=== PATIENT | female | born 1960 | race Caucasian/White ===

== ENCOUNTER 2019-01-19 07:55 | Day surgery (SDC) | payer OTHER ==
[~2019-01-19] VITALS: Ht 162.6 cm; Wt 131.1 kg
[~2019-01-19 07:55] MED LIST: ADVIL200 M1 PO; APPLE CIDER VI300 MG PO; AVAPRO300 MG PO; CALCIUM500 MG PO; CYCLOBENZAPRINE10 MG PO; GABAPENTIN300 MG PO; METFORMIN HCL500 MG PO; NAPROXEN500 MG PO; NORCO 7.5-3251 EACH PO; VENTOLIN HFA18 GM INH; VIT D2
--- NOTE | 2019-01-19 09:56 | NUR ---
01/19/19 0956 Erica Johnson 6962-PATIENT ARRIVED TO PACU ON 10L MASK NONAROUSABLE ORAL AIRWAY IN PLACE, PLACED ON 6L MASK. LAYING LEFT LATERAL. ABDOMEN ROUND AND SOFT. GLUCOSE CHECKED 148. SR
--- NOTE | 2019-01-20 07:38 | OR ---
[facility] [address], [place] [address] Signed DATE OF OPERATION: 01/19/2019 SURGEON: Alisha Barber MD PREOPERATIVE DIAGNOSIS: Screening. POSTOPERATIVE DIAGNOSIS: Several small internal anal skin tags. PROCEDURE: Colonoscopy without biopsy. ESTIMATED BLOOD LOSS: None. INDICATIONS: Mercedes is a 58-year-old female, asked to see me for her initial screening colonoscopy. She had a barium enema back in 1995. She also mentioned there is no family history of colon cancer or polyps. She has chronic diarrhea from her metformin. In the office, I gave her a pamphlet on colonoscopy. We looked at that together along with the risks including, but not limited to gas, bloating, crampy abdominal pain, bleeding, perforation requiring surgery, and missed diagnosis. She also has significant past medical history along with a body mass index of 49. Consequently, we asked an anesthesia provider to help with increased monitoring and sedation with propofol. Particularly, her need for hydrocodone and her Flexeril. She had expressed understanding and wished to proceed. PROCEDURE NOTE: Mercedes was taken into our endoscopy suite and placed in the left lateral decubitus position. She was given IV sedation with propofol per our nurse fine arts instructor. A digital rectal exam was performed and this was unremarkable. The adult colonoscope was introduced and advanced all around into the cecum under direct visualization of camera without difficulty. Her prep was good. The scope was slowly withdrawn. We could easily see the appendiceal orifice and the ileocecal valve. We took pictures for photodocumentation. We found no pathology throughout her entire colon or rectum. Upon retroflexion of the scope, she has several small tiny routine internal anal skin tags. After this, the gas was suctioned out and colonoscope removed. Mercedes tolerated her procedure quite well. Electronically Signed By: ALISHA BARBER MD 01/20/19 0738 PATIENT NAME: MERCEDES COLE OPERATIVE REPORT DATE OF : 56 REPORT #: [id number] PHYSICIAN: ALISHA BARBER MD PCP: RADHA NG PAC REPORT IS CONFIDENTIAL AND NOT TO BE RELEASED WITHOUT AUTHORIZATION [facility] [address], [place] [address] Signed RECOMMENDATIONS: Mercedes can return in 10 years for repeat colonoscopy. She can resume all her chronic medications today including her aspirin and her ibuprofen. Alisha Barber MD ALB/MODL /[id number] cc: EBONY Carrillo MD Andrew L Bower, MD Copies: SAURABH HUTSON MD, ANDREW L MD ~ Electronically Signed By: ALISHA BARBER MD 01/20/19 0738 PATIENT NAME: MERCEDES COLE OPERATIVE REPORT DATE OF : 56 REPORT #: [id number] PHYSICIAN: ALISHA BARBER MD PCP: RADHA NG PAC REPORT IS CONFIDENTIAL AND NOT TO BE RELEASED WITHOUT AUTHORIZATION
== END 2019-01-19 11:00 | disposition home or self-care (01) ==
LOC: OPS 07:55 → DS 07:55 → OPS 09:00 → DS 09:00 → OPS 11:00
PROVIDERS: Colon & Rectal Surgery
PROC: 0DJD8ZZ Inspection of Lower Intestinal Tract, Via Natural or Artificial Opening Endoscopic (ICD-10-PCS; principal; 2019-01-19 09:00)
DX: Z12.11 Encounter for screening for malignant neoplasm of colon (principal); K64.4 Residual hemorrhoidal skin tags; I10 Essential (primary) hypertension; E66.9 Obesity, unspecified; E11.42 Type 2 diabetes mellitus with diabetic polyneuropathy; E03.9 Hypothyroidism, unspecified; F17.210 Nicotine dependence, cigarettes, uncomplicated; Z98.890 Other specified postprocedural states; Z68.42 Body mass index [BMI] 45.0-49.9, adult; Z79.899 Other long term (current) drug therapy; Z79.84 Long term (current) use of oral hypoglycemic drugs; Z79.1 Long term (current) use of non-steroidal anti-inflammatories (NSAID)
CPT/HCPCS: J2405; J2704; J7120

== ENCOUNTER 2019-06-30 11:11 | Emergency (ER) | payer OTHER ==
[~2019-06-30] VITALS: Ht 162.6 cm; Wt 131.1 kg
--- OUTSIDE RECORDS SUMMARY | 2019-06-30 11:14 | XMS ---
PreManage Notification: CHAO COLE Security Electric Installer Events No recent Security Events currently on file CRITERIA MET - NISHAP CARE PROVIDERS [facility] Treatment Current PHONE: Unknown Justine has no Care Guidelines for this patient. [place] VISIT COUNT (12 MO.) 1 OBED [place] TOTAL 1 NOTE: Visits indicate total known visits. ED/UCC VISIT TRACKING (12 MO.) 06/30/2019 11:11 OBED [place] OR TYPE: Emergency COMPLAINT: - COUGH, ABNORMAL LAB RESULTS INPATIENT VISIT TRACKING (12 MO.) No inpatient visits to display in this time frame [email or web address]
[2019-06-30] MEDS ORDERED: PROVENTIL HFA6.7 GM INH (12:27)
[2019-06-30] MEDS ORDERED: VIRTUSSIN AC L118 ML PO (12:27)
[2019-06-30] MEDS ORDERED: ZITHROMAX250 MG PO (12:28)
== END 2019-06-30 13:00 | disposition home or self-care (01) ==
LOC: ED 11:11
DX: R05 Cough (principal); R74.8 Abnormal levels of other serum enzymes; E11.40 Type 2 diabetes mellitus with diabetic neuropathy, unspecified; I10 Essential (primary) hypertension; F17.200 Nicotine dependence, unspecified, uncomplicated; Z79.899 Other long term (current) drug therapy; Z79.84 Long term (current) use of oral hypoglycemic drugs
CPT/HCPCS: 71046; 99283-25

== ENCOUNTER 2022-07-01 08:39 | Emergency (ER) | payer OTHER ==
[~2022-07-01] VITALS: Ht 162.6 cm; Wt 122.0 kg
[~2022-07-01 08:39] MED LIST changes: +ADVIL PM CAPLE1 EACH PO; +MACRODANTIN100 MG PO; +PERCOCET 5-3251 EACH PO; +PROVENTIL HFA6.7 GM INH; +VIRTUSSIN AC L118 ML PO; +ZITHROMAX250 MG PO
--- OUTSIDE RECORDS SUMMARY | 2022-07-01 08:40 | XMS ---
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 [place] VISIT COUNT (12 MO.) Michele [place] TOTAL 1 NOTE: Visits indicate total known visits. ED/UCC VISIT TRACKING (12 MO.) 07/01/2022 08:40 [facility] [place] TYPE: Emergency COMPLAINT: - LOW O2 SATS INPATIENT VISIT TRACKING (12 MO.) No inpatient visits to display in this time frame [email or web address]
[2022-07-01] MEDS ORDERED: CELECOXIB200 MG PO (08:55)
[2022-07-01] MEDS ORDERED: DOXYCYCLINE HY100 MG PO (12:11)
[2022-07-01] MEDS ORDERED: PREDNISONE20 MG PO (12:11)
[2022-07-01] MEDS ORDERED: AMOX TR-K CLV1 EAC1 PO (12:11)
--- NOTE | 2022-07-04 16:10 | EKG ---
[facility] [address] [facility] [place] [address] Signed Sinus rhythm with premature atrial complexes with aberrant conduction Nonspecific ST and T wave abnormality Abnormal ECG When compared with ECG of 11-JUL-2019 06:25, aberrant conduction is now present Nonspecific T wave abnormality now evident in Lateral leads Confirmed by NASRIN ARREAGA MD ([id number]) on 07/04/2022 4:10:11 PM Electronically Signed By: NASRIN ARREAGA MD 07/04/22 1610 PATIENT NAME: CHAO COLE Electrocardiogram DATE OF : 56 PHYSICIAN: NASRIN ARREAGA MD REPORT #: [id number] REPORT IS CONFIDENTIAL AND NOT TO BE RELEASED WITHOUT AUTHORIZATION
== END 2022-07-01 12:25 | disposition home or self-care (01) ==
LOC: ED 08:39
DX: J45.909 Unspecified asthma, uncomplicated (principal); E11.40 Type 2 diabetes mellitus with diabetic neuropathy, unspecified; I10 Essential (primary) hypertension; Z20.822 Contact with and (suspected) exposure to COVID-19; F17.200 Nicotine dependence, unspecified, uncomplicated; Z79.899 Other long term (current) drug therapy; Z79.84 Long term (current) use of oral hypoglycemic drugs
CPT/HCPCS: 36415; 71045; 80053; 83605; 84484; 85025; 93005; 93010; 94664; 96365; 96375; 99285-25; C9803; J0696; J2930; U0003

== ENCOUNTER 2023-02-23 05:30 | Day surgery (SDC) | payer OTHER ==
[2023-02-18 13:45] VITALS: BP 137/64
[~2023-02-23] VITALS: Ht 160 cm; Wt 120.2 kg
[~2023-02-23 05:30] MED LIST changes: +AMOX TR-K CLV1 EAC1 PO; +CELECOXIB200 MG PO; +DOXYCYCLINE HY100 MG PO; +LIPITOR20 MG; +PREDNISONE20 MG PO
[2023-02-23 06:04] VITALS: BP 168/76
[2023-02-23] MEDS ORDERED: VITAMIN D250 MCG PO (06:07)
[2023-02-23 10:30] VITALS: BP 159/73
[2023-02-23 11:40] VITALS: BP 162/71
--- NOTE | 2023-02-23 12:08 | OR ---
[facility] [address] [place], [place] [address] Signed DATE OF OPERATION: 02/23/2023 SURGEON: Gilda Hopkins MD PREOPERATIVE DIAGNOSES: 1. Obstructing 2 cm mid/distal right ureteral calculus. 2. Multiple right renal calculi, the largest of which is 1.8 cm in the mid pole of the right kidney. POSTOPERATIVE DIAGNOSES: 1. Obstructing 2 cm mid/distal right ureteral calculus. 2. Multiple right renal calculi, the largest of which is 1.8 cm in the mid pole of the right kidney. PROCEDURES: 1. Diagnostic cystoscopy with right retrograde pyelogram. 2. Right semi-rigid ureteroscopy with laser lithotripsy and basket extraction of stone fragments. 3. Insertion of 6 x 24 cm double-J ureteral stent into the right collecting system. ANESTHESIA: General. ESTIMATED BLOOD LOSS: Minimal. COMPLICATIONS: None. SPECIMENS: Fragments of 2 cm right ureteral calculus, sent to the lab for stone analysis. DRAINS: A 6 x 24 cm double-J ureteral stent inserted into the right collecting system. INDICATIONS FOR PROCEDURE: Mrs. Coa is a very pleasant 62-year-old female, who is well-known to me. She has a history of heavy stone burden and has been experiencing recurrent bilateral renal calculi for many years now. She has undergone ureteroscopic extraction of multiple left renal calculi in the past. She recently presented again to me to undergo evaluation for Electronically Signed By: GILDA HOPKINS MD 02/23/23 1208 PATIENT NAME: CHAO CAO OPERATIVE REPORT DATE OF : 56 REPORT #: [id number] PHYSICIAN: GILDA HOPKINS MD PCP: RADHA NG PAC REPORT IS CONFIDENTIAL AND NOT TO BE RELEASED WITHOUT AUTHORIZATION [facility] [address] [place], [place] [address] Signed microscopic hematuria. She denied any flank pain, fevers, chills, or gross hematuria at that time. She underwent a CT IVP as per protocol, which revealed a very large 2 cm mid to distal right ureteral calculus that was actually obstructing the right collecting system. Also, noted are multiple large right renal calculi within the right kidney, the largest of which measures 1.8 cm and is located in the mid pole of the right kidney. All total, she has approximately 4 cm or so stone burden in the right kidney. Once she was notified of this obstructing right ureteral calculus, she was placed immediately on the OR schedule and presents today to begin the process of extracting her right renal and ureteral calculi. OPERATIVE FINDINGS: 1. On cystoscopy, there was no evidence of any suspicious masses, lesions, or stones. Bilateral ureteral orifices are in their normal anatomic location. 2. Right retrograde pyelogram reveals a very obvious and large filling defect within the mid to distal right ureter that is the obvious obstructing right ureteral calculus. A semi-rigid ureteroscope was advanced into the mid right ureter and the stone was fragmented using a holmium laser at 8 and 0.8 settings with a 270 micron fiber. The 100% of the stone was successfully fragmented. Due to the shear size of the stone, we did go through three holmium laser fibers. Once the stone was fragmented successfully, I did extract all the larger fragments from the right ureter using a Zero tip basket. By the end of the procedure, only small amounts of dust and blood clot were present within the patient's right ureter. All of the stones were extracted from the patient's bladder using a Danitza syringe. At the end of the procedure, a 6 x 24 cm double-J ureteral stent was inserted into the patient's right collecting system under direct visualization without difficulty. DESCRIPTION OF PROCEDURE: After informed consent was obtained, the patient was taken back to the operating room. [facility] operating room table, where general anesthesia was induced. She was placed in the dorsal lithotomy position and the genitalia prepped and draped in a standard sterile fashion. Using a 30-degree lens on a 22.5-Urdu introducer, rigid cystoscope was inserted through the urethra into her bladder under direct visualization. Panendoscopic views of bladder then obtained. Please see above findings. Attention was turned to the right ureteral orifice. A cone-tipped catheter was used to perform a right retrograde pyelogram. Please see above findings. I then passed a semi-rigid ureteroscope into the bladder and up into the right ureteral orifice and distal right ureter. Semi-rigid ureteroscopy revealed a very large mid ureteral calculus. Holmium laser was used to fragment the stone. Most of the stone was dusted using a 270 micron fiber at 8 and 0.8 settings. Some of the larger fragments were extracted manually using a Zero tip basket. At the end of the procedure, Electronically Signed By: GILDA HOPKINS MD 02/23/23 1208 PATIENT NAME: CHAO CAO OPERATIVE REPORT DATE OF : 56 REPORT #: [id number] PHYSICIAN: GILDA HOPKINS MD PCP: RADHA NG PAC REPORT IS CONFIDENTIAL AND NOT TO BE RELEASED WITHOUT AUTHORIZATION [address] [address] Signed 99% of the significant stone burden had been extracted from the patient's right ureter. So, I reinserted the ureteroscope at the end of procedure and then passed a Sensor wire through the scope and up into the right collecting system. Over the wire, I passed a 6 x 24 cm double-J ureteral stent into the right collecting system under direct visualization. Once I pulled the wire, an adequate coil was noted within the right renal pelvis. An adequate distal coil was noted on cystoscopy. The patient's bladder was then drained and the cystoscope was removed. The procedure was then terminated. The patient tolerated the procedure well without any complication. She will now be transferred to the Postanesthesia Care Unit in stable condition. DISPOSITION: I discussed the details of today's procedure with the patient's friend, Mariam, and answered all of her questions. Due to the shear amount of stone burden within the patient's right collecting system, she will require a staged ureteroscopic extraction of her stones. I explained this to her friend. The patient currently has an indwelling right ureteral stent, this will remain in place until she returns to the operating room on March 16, 2023. At which time, she will undergo right flexible ureteroscopy, laser lithotripsy, basket extraction of stone fragments from the right kidney. This will also include right ureteral stent exchange. The patient was sent home today with Cipro 500 mg one tablet p.o. b.i.d. for a total of 7 days. She was given additional Frederick 10/500, #10 as needed for breakthrough pain. She is already on an existing daily prescription of lower dose Frederick. MD SOL Huitron/ALIX /[id number] Copies: ~ Electronically Signed By: GILDA HOPKINS MD 02/23/23 1208 PATIENT NAME: CHAO CAO OPERATIVE REPORT DATE OF : 56 REPORT #: [id number] PHYSICIAN: GILDA HOPKINS MD PCP: RADHA NG PAC REPORT IS CONFIDENTIAL AND NOT TO BE RELEASED WITHOUT AUTHORIZATION
[2023-02-23 12:53] VITALS: BP 156/87
[2023-02-24 15:48] LABS: CALCULI MASS 214 mg (())
== END 2023-02-23 13:25 | disposition home or self-care (01) ==
LOC: DS 05:30
PROVIDERS: ATTEND Urology
PROC: 0TC68ZZ Extirpation of Matter from Right Ureter, Via Natural or Artificial Opening Endoscopic (ICD-10-PCS; principal; 2023-02-23 07:30)
PROC: BT1DZZZ Fluoroscopy of Right Kidney, Ureter and Bladder (ICD-10-PCS; 2023-02-23 07:30)
DX: N20.1 Calculus of ureter (principal); E11.9 Type 2 diabetes mellitus without complications; I10 Essential (primary) hypertension; E66.9 Obesity, unspecified; Z68.42 Body mass index [BMI] 45.0-49.9, adult; Z79.84 Long term (current) use of oral hypoglycemic drugs
CPT/HCPCS: 00910; 74420; 74450; 82365; C1769; C2617; J0131; J0690; J1885; J2250; J2405; J2704; J3010; J3490; J7121; Q9958

== ENCOUNTER 2023-03-16 06:00 | Day surgery (SDC) | payer OTHER ==
[~2023-03-16] VITALS: Ht 162.6 cm; Wt 120.2 kg
[~2023-03-16 06:00] MED LIST changes: +ATORVASTATIN CA10 MG PO; +OMEPRAZOLE20 MG PO; +TIZANIDINE HCL2 MG PO; +VITAMIN D250 MCG PO
[2023-03-16 06:38] VITALS: BP 160/62
[2023-03-16 13:25] VITALS: BP 137/57
[2023-03-16 14:28] VITALS: BP 159/70
[2023-03-16] MEDS ORDERED: PYRIDIUM200 MG PO (14:38)
[2023-03-16] MEDS ORDERED: MACROBID 100 M100 MG PO (14:38)
[2023-03-16] MEDS ORDERED: HYDROCODON-ACE1 EAC8 PO (14:41)
[2023-03-17 20:00] LABS: CALCULI MASS 553 mg (())
--- NOTE | 2023-03-23 07:28 | OR ---
[facility] [address] [place], [place] [address] Signed DATE OF OPERATION: 03/16/2023 SURGEON: Gilda Hopkins MD PREOPERATIVE DIAGNOSES: 1. Multiple right renal calculi, with a stone burden of approximately 6 cm. 2. History of 2 cm right ureterolithiasis, status post recent ureteroscopy with stone extraction. POSTOPERATIVE DIAGNOSES: 1. Multiple right renal calculi, with a stone burden of approximately 6 cm. 2. History of 2 cm right ureterolithiasis, status post recent ureteroscopy with stone extraction. PROCEDURES: 1. Diagnostic cystoscopy. 2. Right flexible and semi-rigid nephroureteroscopy with laser lithotripsy and basket extraction of stones-complicated due to shear stone volume. 3. Exchange of indwelling right ureteral stent. ANESTHESIA: General. ESTIMATED BLOOD LOSS: Minimal. COMPLICATIONS: None. SPECIMENS: Multiple stone fragments taken from the right renal pelvis and sent to the lab for stone analysis. DRAINS: A 6 x 24 cm double-J ureteral stent inserted into the right collecting system. INDICATIONS FOR PROCEDURE: Ms. Cao is a very pleasant 62-year-old female who is well-known to me due to her history of recurrent nephrolithiasis. 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 In the past, I have performed ureteroscopic Electronically Signed By: GILDA HOPKINS MD 03/23/23 0728 PATIENT NAME: CHAO CAO OPERATIVE REPORT DATE OF : 56 REPORT #: [id number] PHYSICIAN: GILDA HOPKINS MD PCP: RADHA NG PAC REPORT IS CONFIDENTIAL AND NOT TO BE RELEASED WITHOUT AUTHORIZATION [facility] [address] [place], [place] [address] Signed extraction of stones from her left kidney. She has been dealing with a partial staghorn calculus for years now and she was referred out for possible PCNL. However, she was deemed to be too obese to undergo the procedure. At the time of a routine gross hematuria workup, she was found to have an obstructing 2 cm right mid ureteral calculus with associated hydronephrosis. Also noted on the CT IVP were multiple large renal calculi, the largest one located in the right renal pelvis measuring 1.8 cm. In total, she had approximately 6 or so centimeters of stone burden. Approximately two weeks ago, she underwent extraction of her obstructing 2 cm right ureteral calculus. Today, she presents to undergo treatment of the nonobstructing calculi present in her right kidney. OPERATIVE FINDINGS: 1. On cystoscopy, there was no evidence of any suspicious masses, lesions, or stones. However, she does have an indwelling ureteral stent that appears to be fairly heavily calcified, even though it has only been in vivo for a little over two weeks. This stent was removed without difficulty. 2. Right flexible nephroscopy reveals multiple large right renal calculi. The largest one is present within the right renal pelvis near the UPJ. She also has three large stones in the lower pole of the right kidney and another large stone present in the upper pole of the right kidney within a calyx. All total, it is approximately 6 cm or so of stone burden. 3. I was able to extract approximately 3.5 cm of stone burden today mostly from the upper pole and mid pole of the right kidney. In particular, the 1.8 cm calculus present near the right UPJ was dusted using a holmium laser at the dusting settings at 0.4 joules and hertz of 12. The upper pole calculus was fragmented using holmium laser at 8 and 0.8 settings. One-half the stone was successfully fragmented, but the remaining part of the stone was left within the calyx as it was jammed within there and I was unable to basket it out during today's procedure. Another two stones were removed from the lower pole of the patient's right kidney. Both of these were removed in toto using a Zero tip basket. 4. At the end of the procedure, a fresh 6.6 x 24 cm double-J ureteral stent was inserted into the right collecting system under direct visualization without difficulty. DESCRIPTION OF PROCEDURE: After informed consent was obtained, the patient was taken back to the operating room. She was transferred from the [facility] to the operating table where general anesthesia was induced. She was placed in the dorsal lithotomy position and the genitalia was prepped and draped in standard sterile fashion. Using a 30-degree lens on a 22.5-Arabic introducer, rigid cystoscope was inserted through the urethra into her bladder under direct visualization. Panendoscopic views of bladder then obtained. Please see above findings. The calcified indwelling ureteral stent was removed fully intact using graspers. I did pass a Sensor wire through the sheath and up into the right collecting system to maintain access to the right collecting system. I passed a ureteral Electronically Signed By: GILDA HOPKINS MD 03/23/23 0728 PATIENT NAME: CHAO CAO OPERATIVE REPORT DATE OF : 56 REPORT #: [id number] PHYSICIAN: GILDA HOPKINS MD PCP: RAHDA NG PAC REPORT IS CONFIDENTIAL AND NOT TO BE RELEASED WITHOUT AUTHORIZATION [facility] [address] [place], [place] [address] Signed access sheath over the Sensor wire and into the right collecting system. The right collecting system was quite dilated and the sheath passed very easily. Retrograde pyelogram was performed, which did confirm adequate placement of the sheath. Flexible nephroscopy was performed and I did see a very large 1.8 cm stone present near the right UPJ. The stone was fragmented in a dusting fashion using a holmium laser. A 100% of the stone was dusted, and some of the larger fragments were extracted manually using a Zero tip basket. I then turned my attention to the upper pole calculus that was wedged into a calyx. I had dusted about a 3rd of this stone and some of the fragments where extracted using a Zero tip basket. However, there is a 3rd of the stone that remains somewhat impacted in the upper pole calyx. Due to swelling and hemorrhage in this area, I chose to leave this alone and focus on the stones in the lower pole of the right kidney. I wanted a smaller lower poles that was wedged into a calyx was extracted in toto using a Zero tip basket from the ureter without difficulty. Another larger stone was extracted in toto from the right kidney and we were able to take it down to the pelvic brim. The stone would not safely move any further, so we pulled apart the Zero tip basket and I fragmented this stone within the distal right ureter. All of the fragments were successfully were pulled and moved into the bladder where they were then extracted at the end of the procedure. The procedure was difficult due to the shear volume of the stone being abstracted. After 3 hours of surgery, I decided to go ahead and place a new stent into the right collecting system and bring the patient back for another procedure at which point in time, we would likely be successful in extracting all 8 cm of stone burden. A 0.035 Sensor wire was reinserted into the right collecting system using a semi-rigid ureteroscope. A 6 x 24 cm stent was then passed over the wire and into the right collecting system without difficulty. An adequate proximal coil was noted within the right renal pelvis. An adequate distal coil was noted within the bladder. I then irrigated all of the stone fragments from the patient's bladder. These fragments were then placed in a specimen cup to be sent to Pathology for evaluation. The patient's bladder was then drained and the cystoscope was removed. The procedure was then terminated. The patient tolerated the procedure well without any complication. She will now be taken to the postanesthesia care unit in stable condition. DISPOSITION: I discussed the details of today's procedure with the patient's friend, Mariam, and answered all of her questions. The patient has the option to return to the operating room one more time to have her remaining 2 to 2.5 cm of stone burden removed from her kidney. If she chooses to forego surgery, then we can schedule her in approximately two weeks to have to undergo cystoscopy with right ureteral stent extraction. I told the patient to call me in the next 1-2 days to let me know what she would like to do. I suspect she is going to choose to undergo one more surgery, so I anticipate we can get that done on the 30 of March. Otherwise, she was sent home today with Macrobid 1 tablet p.o. b.i.d. for a total of 7 days and Piedmont 01/3251 tablet p.o. q.6 hours p.r.n. pain, dispense #15. Electronically Signed By: GILDA HOPKINS MD 03/23/23 0728 PATIENT NAME: CHAO CAO OPERATIVE REPORT DATE OF : 56 REPORT #: [id number] PHYSICIAN: GILDA HOPKINS MD PCP: RADHA NG PAC REPORT IS CONFIDENTIAL AND NOT TO BE RELEASED WITHOUT AUTHORIZATION [address] [place], [place] [address] Signed MD SOL Huitron/ALIX /[id number] Copies: ~ Electronically Signed By: GILDA HOPKINS MD 03/23/23 0728 PATIENT NAME: CHAO CAO OPERATIVE REPORT DATE OF : 56 REPORT #: [id number] PHYSICIAN: GILDA HOPKINS MD PCP: RADHA NG PAC REPORT IS CONFIDENTIAL AND NOT TO BE RELEASED WITHOUT AUTHORIZATION
== END 2023-03-16 15:15 | disposition home or self-care (01) ==
LOC: DS 06:00
PROVIDERS: ATTEND Urology
PROC: 0TC08ZZ Extirpation of Matter from Right Kidney, Via Natural or Artificial Opening Endoscopic (ICD-10-PCS; principal; 2023-03-16 08:45)
DX: N20.0 Calculus of kidney (principal); E11.9 Type 2 diabetes mellitus without complications; I10 Essential (primary) hypertension; F17.210 Nicotine dependence, cigarettes, uncomplicated; Z79.84 Long term (current) use of oral hypoglycemic drugs; Z79.899 Other long term (current) drug therapy
CPT/HCPCS: 00910; 74420; 82365; C1769; C2617; J0131; J0690; J1100; J1885; J2405; J2704; J3010; J3490; J7121; Q9967

== ENCOUNTER 2025-01-21 06:39 | Emergency (ER) | payer MEDICARE, BC ==
[~2025-01-21] VITALS: Ht 160 cm; Wt 119.0 kg
[~2025-01-21 06:39] MED LIST changes: +HYDROCODON-ACE1 EAC8 PO; +MACROBID 100 M100 MG PO; +MELOXICAM15 MG PO; +PYRIDIUM200 MG PO; +VITAMIN D21250 MCG PO
[2025-01-21] MEDS ORDERED: HYDROCODON-ACE1 EA11 PO (06:55)
[2025-01-21 07:46] VITALS: BP 149/65
== END 2025-01-21 07:46 | disposition home or self-care (01) ==
LOC: ED 06:39
DX: S86.812A Strain of other muscle(s) and tendon(s) at lower leg level, left leg, initial encounter (principal); S00.03XA Contusion of scalp, initial encounter; E11.40 Type 2 diabetes mellitus with diabetic neuropathy, unspecified; I10 Essential (primary) hypertension; F17.200 Nicotine dependence, unspecified, uncomplicated; Z79.1 Long term (current) use of non-steroidal anti-inflammatories (NSAID); Z79.84 Long term (current) use of oral hypoglycemic drugs; Z79.899 Other long term (current) drug therapy; W18.39XA Other fall on same level, initial encounter
CPT/HCPCS: 70450; 73560; 99284-25